=== PATIENT | female | born 1970 | race Caucasian/White ===

== ENCOUNTER 2017-03-31 07:50 | Outpatient (CLI) | payer BC ==
[~2017-03-31 07:50] MED LIST: IOPAMIDOL-300 100 ML VIAL ONE; IOPAMIDOL-300 50 ML VIAL ONE
[2017-03-31] MEDS ORDERED: IOPAMIDOL-300 100 ML VIAL IVP ONE (09:12)
[2017-03-31] MEDS ORDERED: IOPAMIDOL-300 50 ML VIAL PO ONE (09:12)
--- NOTE | 2017-03-31 12:15 | CT Report ---
CT ABDOMEN AND PELVIS WITH CONTRAST: 03/31/2017 CLINICAL INDICATION: Abdominal pain, nausea TECHNIQUE: Axial CT images of the abdomen and pelvis were obtained with 100 mL Isovue 300 intravenously as well as oral contrast. No previous CT is available for comparison. In accordance with CT protocol optimization, one or more of the following dose reduction techniques were utilized for this exam: Automated exposure control, adjustment of mA and/or KV based on patient size, or use of iterative reconstructive technique. FINDINGS: Limited evaluation of the lung bases is unremarkable. Abdomen: The liver, spleen, pancreas, kidneys and adrenal glands are unremarkable. The gallbladder is not dilated. No bowel dilatation, free gas, or free fluid is present. No abdominal adenopathy is seen. The appendix is not confidently identified, but no pericecal inflammation or abnormal fluid collection is seen to suggest acute appendicitis. Pelvis: The pelvic organs appear unremarkable. No pelvic adenopathy or free fluid is present. No diverticulosis or diverticulitis is identified. Osseous structures demonstrate degenerative changes. IMPRESSION: NO EVIDENT ETIOLOGY FOR THE PATIENT'S ABDOMINAL PAIN. FREDDIE/ TD: 03/31/2017 13:14 [facility]
== END 2017-03-31 07:51 | disposition home or self-care (01) ==
LOC: DI 07:50
PROVIDERS: ATTEND Physician Assistant
DX: R10.9 Unspecified abdominal pain (principal); R11.0 Nausea; Z98.890 Other specified postprocedural states
CPT/HCPCS: 74177; Q9967